=== PATIENT | female | born 1980 | race Caucasian/White ===

== ENCOUNTER 2016-06-29 11:17 | Emergency (ER) | payer OTHER ==
[~2016-06-29] VITALS: Ht 170.2 cm; Wt 75.0 kg
[~2016-06-29 11:17] MED LIST: CARI200T; HYDR10TA16; MUCI600T
[2016-06-29 11:20] VITALS: BP 143/92; PULSE 103; RESP 16; TEMP 99.8; O2SAT 100
[2016-06-29] MEDS ORDERED: LIDOCAINE 1%/EPINEPHrine 1:100,000 SOLN 20 ML VIAL INFIL ONE (11:30)
[2016-06-29] MEDS ORDERED: SODIUM CHLOR 0.9% 1000 ML INJ 1,000 ML IV ONE (11:30)
[2016-06-29] MEDS ORDERED: HYDROmorphone HCL PF 1 MG/ML VIAL IV PUSH ONE (11:30)
[2016-06-29] MEDS ORDERED: ONDANSETRON HCL 4 MG/2 ML VIAL IV PUSH ONE (11:30)
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
[2016-06-29] MEDS ORDERED: HYDROmorphone HCL PF 1 MG/ML VIAL IVS ONE (12:30)
[2016-06-29] MEDS ORDERED: KETAMINE HCL 500 MG/5 ML VIAL IV PUSH ONE (12:45)
[2016-06-29 12:50] VITALS: O2SAT 100
[2016-06-29 13:15] VITALS: O2SAT 100
[2016-06-29] MEDS ORDERED: CLINDAMYCIN INJ 600 MG in SODIUM CHLORIDE 0.9% INJ 100 ML IV ONE (13:15)
--- NOTE | 2016-06-29 13:22 | PD ---
Physical Exam Date Seen by Provider: Jun 29, 2016 Time Seen by Provider: 13:18 Narrative I was asked by Dr. Kearney to assist with a large deep laceration to the right lateral thigh under conscious sedation. Arleen drain was already placed prior to my assistance. Please see his note for description and disposition of the patient. Data Data Last Documented VS Vital Signs Date Time Temp Pulse Resp B/P Pulse Ox O2 Delivery O2 Flow Rate FiO2 06/29/16 11:20 99.8 103 16 143/92 100 Orders Lidocai-Epi 1%-1:100,000 Inj (Xylocaine- (06/29/16 11:30) Hydromorphone Pf Inj (Dilaudid Pf Inj) (06/29/16 11:30) Ondansetron Inj (Zofran Inj) (06/29/16 11:30) Sodium Chlor 0.9% 1000 Ml Inj (Ns 1000 M (06/29/16 11:30) Femur (Ap & Lat/2vws) (06/29/16 ) Hydromorphone Pf Inj (Dilaudid Pf Inj) (06/29/16 12:30) Ketamine Inj (Ketalar Inj) (06/29/16 12:45) Clindamycin Inj (Cleocin Inj) (06/29/16 13:15) MDM Medical Record Reviewed: Yes Supervised Visit with MARY BETH: Yes Procedures Procedure Narrative LACERATION LOCATION: Right lateral thigh LENGTH: 12 cm deep laceration which does not involve the underlying muscle fascia NUMBER OF STITCHES/AL: 3 interrupted vertical mattress, 10 interrupted horizontal mattress, and 3 simple sutures. REPAIR: The area of the laceration was prepped with Betadine and sterilely draped. The wound was copiously irrigated and explored without evidence of foreign body, tendon injury or neurovascular injury. The wound was closed using 3-0 Prolene and 4-0 Ethilon. This was a single layer repair. A sterile dressing was applied. The patient was advised to keep the dressing clean and dry. Patient tolerated the procedure well. Condition: Stable Jasvir Meza Jun 29, 2016 13:22
[2016-06-29] MEDS ORDERED: TETANUS/DIPHTHERIA TOXOID ADULT 0.5 ML VIAL IM ONE (13:45)
[2016-06-29] MEDS ORDERED: HYDR-3533 PO (13:49)
[2016-06-29] MEDS ORDERED: CLIN1CAP6 PO (13:49)
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
[2016-06-29 14:03] VITALS: RESP 14
[2016-06-29] MEDS ORDERED: ACETAMINOPHEN/HYDROcodone 325 MG/5 MG TAB PO ONE (15:30)
[2016-06-29 15:39] VITALS: BP 132/80; TEMP 98.9
== END 2016-06-29 16:20 | disposition home or self-care (01) ==
LOC: NEPE 11:17
DX: S71.111A Laceration without foreign body, right thigh, initial encounter (principal); Z23 Encounter for immunization; W01.0XXA Fall on same level from slipping, tripping and stumbling without subsequent striking against object, initial encounter; Y92.832 Beach as the place of occurrence of the external cause; Y93.15 Activity, underwater diving and snorkeling
CPT/HCPCS: 12004; 73552; 90714; 96361; 96365; 96375; 96376; 99155; 99283; E0113; J1170; J2405; J7030; L1830

== ENCOUNTER 2016-06-30 00:22 | Emergency (ER) | payer OTHER ==
[~2016-06-30] VITALS: Ht 170.2 cm; Wt 74.0 kg
[~2016-06-30 00:22] MED LIST changes: +CLIN1CAP6 PO; +HYDR-3533 PO
[2016-06-30 00:25] VITALS: BP 128/65; PULSE 88; RESP 16; TEMP 99.5; O2SAT 99
== END 2016-06-30 03:45 | disposition left against medical advice (07) ==
LOC: NED 00:22
DX: S81.811D Laceration without foreign body, right lower leg, subsequent encounter (principal); Z53.21 Procedure and treatment not carried out due to patient leaving prior to being seen by health care provider; X58.XXXD Exposure to other specified factors, subsequent encounter
CPT/HCPCS: 99281

== ENCOUNTER 2017-07-03 06:58 | Emergency (ER) | payer OTHER ==
[~2017-07-03] VITALS: Ht 170.2 cm; Wt 76.0 kg
[~2017-07-03 06:58] MED LIST changes: +AMOX500C PO; -CARI200T; -CLIN1CAP6 PO; -HYDR-3533 PO; -HYDR10TA16; -MUCI600T; +OMEP20TA93 PO; +VENL75TA PO
[2017-07-03 07:02] VITALS: BP 101/70; PULSE 98; RESP 16; TEMP 97.6; O2SAT 97
[2017-07-03] MEDS ORDERED: SODIUM CHLOR 0.9% 1000 ML INJ 1,000 ML IV SCH (07:18)
[2017-07-03] MEDS ORDERED: ONDANSETRON HCL 4 MG/2 ML VIAL IVP ONE (07:30)
[2017-07-03] MEDS ORDERED: KETOROLAC TROMETHAMINE 30 MG/ML (IVP) VIAL IVP ONE (07:30)
[2017-07-03] MEDS ORDERED: SODIUM CHLORIDE 0.9% FLUSH 10 ML FLUSH IV FLUSH PRN (07:30)
[2017-07-03] MEDS ORDERED: ZOFR4TAB3 SL (07:31)
--- NOTE | 2017-07-03 07:31 | PD ---
HPI Chief Complaint: GI Complaint Time Seen by Provider: 07:12 Travel History International Travel<30 days: No Contact w/Intl Traveler<30days: No Traveled to known affect area: No History of Present Illness HPI The patient's 36. She arrives with a complaint of nausea vomiting and diarrhea for the past 7 hours, starting at midnight. There is right-sided abdominal pain. The patient reports no fever. Generalized state of achiness is reported. The patient had the same food as everyone else for dinner. She spent yesterday scuba diving. No urinary complaint. No vaginal bleeding or discharge. Last menstruation more than several months prior due to IUD. The patient has been compliant with omeprazole and venlafaxine. She denies a past medical history otherwise. PFSH Past Medical History Hx Anticoagulant Therapy: No Diabetes: No Diminished Hearing: No ?: Not Past Surgical History Appendectomy: Yes Other Surgery: Yes (BREAST IMPLANTS) Social History Alcohol Use: Yes (SOC) Tobacco Use: Yes Substance Use: No Allergies-Medications (Allergen,Severity, Reaction): Coded Allergies: No Known Allergies (Verified Adverse Reaction, Unknown, 07/03/17) Reported Meds & Prescriptions Reported Meds & Active Scripts Active Keflex (Cephalexin) 250 Mg Cap 250 Mg PO Q6H 3 Days Reported Effexor (Venlafaxine HCl) 75 Mg Tab 150 Mg PO DAILY Omeprazole 20 Mg Tab 20 Mg PO DAILY Review of Systems Except as stated in HPI: all other systems reviewed are Neg General / Constitutional: No: Fever Physical Exam Narrative GENERAL: 36-year-old female well-nourished well-developed mild distress Vital Signs Date Time Temp Pulse Resp B/P (MAP) Pulse Ox O2 Delivery O2 Flow Rate FiO2 07/03/17 07:02 97.6 98 16 101/70 (80) 97 SKIN: Warm and dry. HEAD: Atraumatic. Normocephalic. EYES: Pupils equal and round. No scleral icterus. No injection or drainage. ENT: No nasal bleeding or discharge. Mucous membranes pink and moist. NECK: Trachea midline. No JVD. CARDIOVASCULAR: Regular rate and rhythm. RESPIRATORY: No accessory muscle use. Clear to auscultation. Breath sounds equal bilaterally. GASTROINTESTINAL: Abdomen soft, non-tender, nondistended. Hepatic and splenic margins not palpable. MUSCULOSKELETAL: Extremities without clubbing, cyanosis, or edema. No obvious deformities. NEUROLOGICAL: Awake and alert. No obvious cranial nerve deficits. Motor grossly within normal limits. Five out of 5 muscle strength in the arms and legs. Normal speech. PSYCHIATRIC: Appropriate mood and affect; insight and judgment normal. Data Data Last Documented VS Vital Signs Date Time Temp Pulse Resp B/P (MAP) Pulse Ox O2 Delivery O2 Flow Rate FiO2 07/03/17 08:30 17 07/03/17 07:38 99 Room Air 07/03/17 07:02 97.6 98 101/70 (80) Orders Orders Complete Blood Count With Diff (07/03/17 07:18) Comprehensive Metabolic Panel (07/03/17 07:18) Urinalysis - C+S If Indicated (07/03/17 07:18) Iv Access Insert/Monitor (07/03/17 07:18) Ecg Monitoring (07/03/17 07:18) Oximetry (07/03/17 07:18) Ondansetron Inj (Zofran Inj) (07/03/17 07:30) Sodium Chlor 0.9% 1000 Ml Inj (Ns 1000 M (07/03/17 07:18) Sodium Chloride 0.9% Flush (Ns Flush) (07/03/17 07:30) Ketorolac Inj (Toradol Inj) (07/03/17 07:30) Ed Urine Pregnancytest Poc (07/03/17 07:18) Sodium Chlor 0.9% 1000 Ml Inj (Ns 1000 M (07/03/17 09:30) Ed Discharge Order (07/03/17 10:02) Urine Culture (07/03/17 09:40) Labs Laboratory Tests Test 07/03/17 07:35 07/03/17 09:40 White Blood Count 12.0 TH/MM3 Red Blood Count 5.47 MIL/MM3 Hemoglobin 16.5 GM/DL Hematocrit 47.3 % Mean Corpuscular Volume 86.5 FL Mean Corpuscular Hemoglobin 30.1 PG Mean Corpuscular Hemoglobin Concent 34.8 % Red Cell Distribution Width 12.8 % Platelet Count 243 TH/MM3 Mean Platelet Volume 8.3 FL Neutrophils (%) (Auto) 89.9 % Lymphocytes (%) (Auto) 3.2 % Monocytes (%) (Auto) 2.9 % Eosinophils (%) (Auto) 0.8 % Basophils (%) (Auto) 3.2 % Neutrophils # (Auto) 10.8 TH/MM3 Lymphocytes # (Auto) 0.4 TH/MM3 Monocytes # (Auto) 0.3 TH/MM3 Eosinophils # (Auto) 0.1 TH/MM3 Basophils # (Auto) 0.4 TH/MM3 CBC Comment DIFF FINAL Differential Comment Blood Urea Nitrogen 16 MG/DL Creatinine 0.56 MG/DL Random Glucose 123 MG/DL Total Protein 7.5 GM/DL Albumin 4.3 GM/DL Calcium Level 8.9 MG/DL Alkaline Phosphatase 42 U/L Aspartate Amino Transf (AST/SGOT) 20 U/L Alanine Aminotransferase (ALT/SGPT) 26 U/L Total Bilirubin 1.0 MG/DL Sodium Level 139 MEQ/L Potassium Level 4.1 MEQ/L Chloride Level 106 MEQ/L Carbon Dioxide Level 24.5 MEQ/L Anion Gap 9 MEQ/L Estimat Glomerular Filtration Rate 123 ML/MIN Urine Collection Type CLEAN CATCH Urine Color YELLOW Urine Turbidity CLEAR Urine pH 6.0 Urine Specific [place] 1.020 Urine Protein NEG mg/dL Urine Glucose (UA) 500 mg/dL Urine Ketones 40 mg/dL Urine Occult Blood NEG Urine Nitrite NEG Urine Bilirubin NEG Urine Urobilinogen 0.2 MG/DL Urine Leukocyte Esterase NEG Urine WBC 0-2 /hpf Urine Squamous Epithelial Cells 6-8 /hpf Urine Bacteria MOD /hpf Microscopic Urinalysis Comment CULTURE INDICATED Urine Collection Time 09:40 MDM Medical Decision Making Medical Screen Exam Complete: Yes Emergency Medical Condition: Yes Medical Record Reviewed: Yes Differential Diagnosis Constipation, Gastritis, Acute Cholecystitis, Biliary Colic, Pancreatitis, ROWE , Hepatitis, Bowel Obstruction, Cystitis, Mesenteric Ischemia, AAA, Appendicitis , Renal Stone/Hydronephrosis, GERD, perforated viscous Narrative Course CBC & BMP Diagram 07/03/17 07:35 Total Protein 7.5, Albumin 4.3, Calcium Level 8.9, Alkaline Phosphatase 42 L, Aspartate Amino Transf (AST/SGOT) 20, Alanine Aminotransferase (ALT/SGPT) 26, Total Bilirubin 1.0 Patient was evaluated at 945 and also at about 9 AM. Will time she reported moderate subjective improvement. The patient drank about half a bottle of Gatorade. Workup reveals no major abnormality in the presentation and overall is considered mostly keeping with a gastroenteritis type syndrome. There no significant tenderness on abdominal exam. Patient had appendectomy and in this scenario I doubt there is a surgical emergency and for a CT considered indicated. The mild leukocytosis is considered in keeping with numerous episodes of vomiting and diarrhea. UA shows somewhat blood cells. Keflex prescription. Diagnosis Primary Impression: Nausea vomiting and diarrhea Additional Impression: Pyuria Referrals: Primary Care Physician 2 days Med/Other Pt SpecificInfo: Prescription(s) given Scripts Cephalexin (Keflex) 250 Mg Cap 250 MG PO Q6H for Infection for 3 Days, #12 CAP 0 Refills Prov: John Paul Reagan MD 07/03/17 Disposition: 01 DISCHARGE HOME Condition: Stable John Paul Reagan MD July 03, 2017 07:31
[2017-07-03 07:38] VITALS: O2SAT 99
[2017-07-03 07:41] LABS: AUTOMATED NEUTROPHIL # 10.8 TH/MM3 (1.8-7.7); BASOPHIL # 0.4 TH/MM3 (0-0.2); BASOPHIL % 3.2 % (0.0-2.0); EOSINOPHIL # 0.1 TH/MM3 (0-0.4); EOSINOPHIL % 0.8 % (0.0-4.0); HEMATOCRIT 47.3 % (35.0-46.0); HEMOGLOBIN 16.5 GM/DL (11.6-15.3); LYMPH % 3.2 % (9.0-44.0); LYMPHOCYTE # 0.4 TH/MM3 (1.0-4.8); MEAN CELL VOLUME 86.5 FL (80.0-100.0); MEAN CORPUSCULAR HEMOGLOBIN 30.1 PG (27.0-34.0); MEAN CORPUSCULAR HGB CONC 34.8 % (32.0-36.0); MEAN PLATELET VOLUME 8.3 FL (7.0-11.0); MONO % 2.9 % (0.0-8.0); MONOCYTE # 0.3 TH/MM3 (0-0.9); NEUT % 89.9 % (16.0-70.0); PLATELET COUNT 243 TH/MM3 (150-450); RED BLOOD COUNT 5.47 MIL/MM3 (4.00-5.30); RED CELL DISTRIBUTION WIDTH 12.8 % (11.6-17.2)
[2017-07-03 07:48] LABS: CHLORIDE 106 MEQ/L (98-107); SODIUM (NA) 139 MEQ/L (136-145)
[2017-07-03 07:51] LABS: CALCIUM 8.9 MG/DL (8.5-10.1)
[2017-07-03 07:52] LABS: ALBUMIN 4.3 GM/DL (3.4-5.0); BICARBONATE 24.5 MEQ/L (21.0-32.0); BLOOD UREA NITROGEN 16 MG/DL (7-18); GLUCOSE,RANDOM 123 MG/DL (74-106)
[2017-07-03 07:55] LABS: ALT (GPT) 26 U/L (10-53); AST (GOT) 20 U/L (15-37); CREATININE 0.56 MG/DL (0.50-1.00); GLOMERULAR FILTRATION RATE 123 ML/MIN (>89)
[2017-07-03 07:57] LABS: TOTAL PROTEIN 7.5 GM/DL (6.4-8.2)
[2017-07-03 07:58] LABS: ALKALINE PHOSPHATASE 42 U/L (45-117)
[2017-07-03 08:30] VITALS: RESP 17
[2017-07-03] MEDS ORDERED: SODIUM CHLOR 0.9% 1000 ML INJ 1,000 ML IV ONE (09:30)
[2017-07-03 09:58] LABS: BLOOD, URINE NEG (NEG); GLUCOSE,URINE 500 mg/dL (NEG); KETONE, URINE 40 mg/dL (NEG); NITRITE,URINE NEG (NEG); URINE COLOR YELLOW (YELLW/STRAW); URINE LEUKOCYTE ESTERASE NEG (NEG)
[2017-07-03 10:02] LABS: BILIRUBIN, URINE NEG (NEG)
[2017-07-03 10:11] LABS: BACTERIA, URINE MOD /hpf; WBC, URINE 0-2 /hpf (0-5)
[2017-07-03] MEDS ORDERED: CEPH-459 PO (10:16)
[2017-07-03 10:54] VITALS: BP 93/55
== END 2017-07-03 10:57 | disposition home or self-care (01) ==
LOC: PHED 06:58
DX: R11.2 Nausea with vomiting, unspecified (principal); R19.7 Diarrhea, unspecified; N39.0 Urinary tract infection, site not specified; Z72.0 Tobacco use
CPT/HCPCS: 80053; 81001; 84703; 85025; 87086; 96361; 96374; 96375; 99284; J1885; J2405; J7030